=== PATIENT | male | born 1995 | race Caucasian/White ===

== ENCOUNTER 2019-02-19 02:53 | Emergency (ER) | payer SELFPAY ==
[2019-02-19] MEDS ORDERED: Sodium Chloride 0.9% 1,000 ML IV SCH (03:30)
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
[2019-02-19 03:46] LABS: ACETAMINOPHEN 0 ug/mL (10-30)
--- NOTE | 2019-02-19 12:23 | CR ---
Chest: Two views of the chest were obtained. Comparison: No prior chest imaging. Heart size and mediastinum are normal. Lungs are clear. Bony structures are within normal limits. Impression: 1. Nothing acute is seen on two-view chest x-ray. Diagnostic code #1
== END 2019-02-19 04:09 | disposition home or self-care (01) ==
LOC: JD.ED 02:53
DX: F10.129 Alcohol abuse with intoxication, unspecified (principal); F17.210 Nicotine dependence, cigarettes, uncomplicated
CPT/HCPCS: 36415; 71046; 80053; 80306; 84443; 85007; 85027; 93005; 99284; G0480; J7040